=== PATIENT | female | born 1930 | race Caucasian/White ===

== ENCOUNTER → 2017-11-23 | Outpatient (CLI) | payer MEDICARE | END | disposition home or self-care (01) | LOC: RAH 10:02 | PROVIDERS: ATTEND Internal Medicine Endocrinology, Diabetes & Metabolism | DX: E04.2 Nontoxic multinodular goiter (principal) | CPT/HCPCS: 76536 ==

== ENCOUNTER 2017-11-27 07:44 | Emergency (ER) | payer MEDICARE ==
[2017-11-27] MEDS ORDERED: FENTANYL CITRATE PF 50 MCG/1 ML 2ML VIAL ONE (08:04)
[2017-11-27 08:29] LABS: BASOPHILS % (AUTO) 1.5 % (0.0-5.0); EOSINOPHILS % (AUTO) 0.1 % (0.0-8.0); HEMATOCRIT 43.8 % (36-48); LYMPHOCYTES % (AUTO) 14.1 % (21.0-51.0); MEAN CORPUSCULAR HEMOGLOBIN 32.2 pg (27.0-33.0); MEAN CORPUSCULAR HGB CONC 33.8 g/dL (32.0-36.0); MEAN CORPUSCULAR VOLUME 95.4 fL (79-99); MONOCYTES % (AUTO) 9.2 % (3.0-13.0); NEUTROPHILS % (AUTO) 75.1 % (40.0-77.0); NUCLEATED RED BLOOD CELLS 0.1 % (0.0-0.19); PLATELET COUNT (AUTO) 212 K/uL (130-400); RED BLOOD CELL COUNT(AUTO) 4.59 MIL/uL (4.00-5.50)
[2017-11-27 09:02] LABS: CREATININE 0.9 mg/dL (0.5-1.5); POTASSIUM 4.1 mmol/L (3.5-5.1)
[2017-11-27 09:08] LABS: ALBUMIN 4.2 g/dL (3.5-5.0); TOTAL PROTEIN, SERUM 8.3 g/dL (6.0-8.3)
[2017-11-27] MEDS ORDERED: LIDOCAINE 5% TOPICAL PATCH TP ONE (09:11)
[2017-11-27] MEDS ORDERED: DIAZEPAM 2 MG TAB ONE (09:12)
[2017-11-27 09:49] LABS: CRP QUANTITATIVE 16.5 mg/L (0.00-9.0)
[2017-11-27 09:52] LABS: ERYTHROCYTE SEDIMENTATION RATE 25 MM/HR (0-15)
== END 2017-11-27 12:35 | disposition home or self-care (01) ==
LOC: EDH 07:44
DX: M62.838 Other muscle spasm (principal); M54.2 Cervicalgia; R11.0 Nausea; I10 Essential (primary) hypertension; Z90.710 Acquired absence of both cervix and uterus; Z88.0 Allergy status to penicillin; Z88.1 Allergy status to other antibiotic agents; Z88.2 Allergy status to sulfonamides; Z88.5 Allergy status to narcotic agent; Z79.82 Long term (current) use of aspirin; Z79.899 Other long term (current) drug therapy
CPT/HCPCS: 36415; 70450; 72125; 80053; 85025; 85651; 86140; 96374; 96376; 99285; J3010

== ENCOUNTER 2018-08-13 10:32 | Emergency (ER) | payer MEDICARE ==
[2018-08-13] MEDS ORDERED: OXYMETAZOLINE HCL SPRAY 15 ML BOTTLE ONE (12:01)
[2018-08-13 12:20] LABS: BASOPHILS % (AUTO) 0.9 % (0.0-5.0); EOSINOPHILS % (AUTO) 1.1 % (0.0-8.0); HEMATOCRIT 44.3 % (36-48); LYMPHOCYTES % (AUTO) 19.8 % (21.0-51.0); MEAN CORPUSCULAR HGB CONC 33.4 g/dL (32.0-36.0); MEAN CORPUSCULAR VOLUME 95.8 fL (79-99); MONOCYTES % (AUTO) 8.2 % (3.0-13.0); PLATELET COUNT (AUTO) 172 K/uL (130-400); RED BLOOD CELL COUNT(AUTO) 4.62 MIL/uL (4.00-5.50); RED CELL DISTRIBUTION WIDTH 13.4 % (11.0-15.5); WHITE BLOOD COUNT (AUTO) 8.7 K/uL (4.8-10.8)
[2018-08-13 12:24] LABS: CREATININE 0.6 mg/dL (0.5-1.5); POTASSIUM 3.9 mmol/L (3.5-5.1)
[2018-08-13 12:31] LABS: INR 0.97 (0.85-1.15); PARTIAL THROMBOPLASTIN TIME 27.6 SEC (26.3-35.5); PROTHROMBIN TIME 10.2 SEC (9.6-11.6)
== END 2018-08-13 15:13 | disposition home or self-care (01) ==
LOC: EDH 10:32
DX: R04.0 Epistaxis (principal); I10 Essential (primary) hypertension; Z88.0 Allergy status to penicillin; Z88.1 Allergy status to other antibiotic agents; Z88.6 Allergy status to analgesic agent; Z88.2 Allergy status to sulfonamides; Z90.710 Acquired absence of both cervix and uterus
CPT/HCPCS: 36415; 80048; 85025; 85610; 85730

== ENCOUNTER → 2018-11-08 | Outpatient (CLI) | payer MEDICARE | END | disposition home or self-care (01) | LOC: RAH 10:30 | PROVIDERS: ATTEND Internal Medicine Endocrinology, Diabetes & Metabolism | DX: E04.2 Nontoxic multinodular goiter (principal) | CPT/HCPCS: 76536 ==

== ENCOUNTER → 2019-07-30 | Outpatient (CLI) | payer MEDICARE | END | disposition home or self-care (01) | LOC: RAH 08:18 | PROVIDERS: ATTEND Family Medicine | DX: Z12.31 Encounter for screening mammogram for malignant neoplasm of breast (principal); M94.0 Chondrocostal junction syndrome [Tietze] | CPT/HCPCS: 77067 ==

== ENCOUNTER → 2019-08-13 | Outpatient (CLI) | payer MEDICARE | END | disposition home or self-care (01) | LOC: RAH 10:42 | PROVIDERS: ATTEND Internal Medicine Endocrinology, Diabetes & Metabolism | DX: E04.2 Nontoxic multinodular goiter (principal) | CPT/HCPCS: 76536 ==

== ENCOUNTER 2020-02-12 14:10 | Inpatient (IN) | payer MEDICARE ==
[~2020-02-12] VITALS: Ht 154.9 cm; Wt 65.7 kg
[2020-02-12] MEDS ORDERED: SODIUM CHLORIDE 0.9% 500ML 500 ML IV ONE (14:37)
[2020-02-12] MEDS ORDERED: ONDANSETRON HCL 4 MG/2 ML VIAL ONE (14:37)
[2020-02-12 15:00] LABS: BASOPHILS % (AUTO) 0.3 % (0.0-5.0); HEMATOCRIT 41.9 % (36-48); LYMPHOCYTES % (AUTO) 21.2 % (21.0-51.0); MEAN CORPUSCULAR HEMOGLOBIN 30.5 pg (27.0-33.0); MEAN CORPUSCULAR HGB CONC 33.7 g/dL (32.0-36.0); MEAN CORPUSCULAR VOLUME 90.7 fL (79-99); MONOCYTES % (AUTO) 11.8 % (3.0-13.0); NEUTROPHILS % (AUTO) 65.1 % (40.0-77.0); PLATELET COUNT (AUTO) 157 K/uL (130-400); RED BLOOD CELL COUNT(AUTO) 4.62 MIL/uL (4.00-5.50); RED CELL DISTRIBUTION WIDTH 12.8 % (11.0-15.5); WHITE BLOOD COUNT (AUTO) 3.8 K/uL (4.8-10.8)
[2020-02-12 15:01] LABS: CREATININE 0.8 mg/dL (0.5-1.5); POTASSIUM 3.4 mmol/L (3.5-5.1)
[2020-02-12 15:06] LABS: ALBUMIN 3.3 g/dL (3.5-5.0); BILIRUBIN,TOTAL 0.8 mg/dL (0.2-1.0); TOTAL PROTEIN, SERUM 7.2 g/dL (6.0-8.3)
[2020-02-12 15:43] LABS: APPEARANCE,URINE SL CLOUDY (CLEAR); BILIRUBIN,URINE NEGATIVE (NEGATIVE); COLOR,URINE YELLOW (YELLOW); GLUCOSE, URINE (UA) NEGATIVE (NEGATIVE); KETONES,URINE 5 mg/dL (NEGATIVE); LEUKOCYTE ESTERASE ,URINE SMALL (NEGATIVE); NITRATE,URINE NEGATIVE (NEGATIVE); OCCULT BLOOD,URINE TRACE-INTACT (NEGATIVE); PROTEIN,URINE 100 mg/dL (NEGATIVE); UROBILINOGEN,URINE 0.2 mg/dL (0.2-1.0)
[2020-02-12 15:59] LABS: BACTERIA,URINE Few /HPF (None Seen); SQUAMOUS EPITHELIAL CELL,UR Few /HPF (0-2)
[2020-02-12 16:00] LABS: MUCUS,URINE Few LPF (None Seen)
[2020-02-12] MEDS ORDERED: METHYLPREDNISOLONE SOD SUCC 40MG/ML 1ML ONE (17:42)
[2020-02-12] MEDS ORDERED: LEVOFLOXACIN 500 MG/D5W 100 ML 100 ML ONE (17:43)
[2020-02-13] MEDS ORDERED: METHYLPREDNISOLONE SOD SUCC 40MG/ML 1ML ONE (00:29)
[2020-02-13 05:00] LABS: BASOPHILS % (AUTO) 0.5 % (0.0-5.0); HEMATOCRIT 39.3 % (36-48); LYMPHOCYTES % (AUTO) 27.3 % (21.0-51.0); MEAN CORPUSCULAR HEMOGLOBIN 30.7 pg (27.0-33.0); MEAN CORPUSCULAR HGB CONC 33.8 g/dL (32.0-36.0); MEAN CORPUSCULAR VOLUME 90.8 fL (79-99); MONOCYTES % (AUTO) 4.5 % (3.0-13.0); NEUTROPHILS % (AUTO) 65.7 % (40.0-77.0); PLATELET COUNT (AUTO) 141 K/uL (130-400); RED BLOOD CELL COUNT(AUTO) 4.33 MIL/uL (4.00-5.50); RED CELL DISTRIBUTION WIDTH 12.7 % (11.0-15.5)
[2020-02-13 05:01] LABS: CREATININE 0.6 mg/dL (0.5-1.5); POTASSIUM 4.1 mmol/L (3.5-5.1)
[2020-02-13] MEDS ORDERED: METHYLPREDNISOLONE SOD SUCC 40MG/ML 1ML IVP SCH (07:15)
[2020-02-13] MEDS ORDERED: DEXTROSE 50%-WATER 50 ML DISP.SYRIN IV PRN (07:15)
[2020-02-13] MEDS ORDERED: SODIUM CHLORIDE 0.9% 1000ML 1,000 ML IV SCH (07:15)
[2020-02-13] MEDS ORDERED: GLUCAGON 1MG KIT 1 MG ML IM PRN (07:15)
[2020-02-13] MEDS ORDERED: AZITHROMYCIN 500MG+NS 250ML 250 ML IV SCH ×2 (09:00→15:00)
[2020-02-13 10:34] LABS: CREATINE KINASE, TOTAL 92 U/L (21-232); LACTATE DEHYDROGENASE 460 U/L (81-234)
[2020-02-13 10:43] LABS: FIBRINOGEN 366 mg/dL (180-350)
[2020-02-13 11:18] LABS: D-DIMER 3205 ng/mL (0-500)
[2020-02-13] MEDS ORDERED: HYDRALAZINE HCL 20 MG/ML VIAL IV PRN (13:30)
[2020-02-13] MEDS ORDERED: ACETAMINOPHEN 325 MG TAB PO PRN ×2 (13:30)
[2020-02-13] MEDS ORDERED: CEFTRIAXONE SODIUM 1 GM IVP SCH (13:30)
[2020-02-13] MEDS ORDERED: METOPROLOL TARTRATE 1 MG/ML 5ML VIAL IV PRN (13:30)
[2020-02-13] MEDS ORDERED: CEFTRIAXONE SODIUM 1 GM ONE (13:37)
[2020-02-13] MEDS ORDERED: AZITHROMYCIN 500MG+NS 250ML 250 ML IV ONE (15:40)
[2020-02-13] MEDS ORDERED: ERGOCALCIFEROL (VITAMIN D2) 50,000 UNIT CAPSULE PO ONE (16:00)
[2020-02-13] MEDS ORDERED: ENOXAPARIN SODIUM 80 MG/0.8 ML SQ ONE (20:36)
[2020-02-13] MEDS ORDERED: ACETAMINOPHEN 325 MG TAB ONE (23:24)
[2020-02-14 05:57] LABS: BASOPHILS % (AUTO) 0.1 % (0.0-5.0); HEMATOCRIT 41.1 % (36-48); LYMPHOCYTES % (AUTO) 10.7 % (21.0-51.0); MEAN CORPUSCULAR HGB CONC 33.8 g/dL (32.0-36.0); MEAN CORPUSCULAR VOLUME 91.5 fL (79-99); NEUTROPHILS % (AUTO) 82.7 % (40.0-77.0); PLATELET COUNT (AUTO) 168 K/uL (130-400); RED BLOOD CELL COUNT(AUTO) 4.49 MIL/uL (4.00-5.50); RED CELL DISTRIBUTION WIDTH 12.7 % (11.0-15.5); WHITE BLOOD COUNT (AUTO) 7.3 K/uL (4.8-10.8)
[2020-02-14 06:38] LABS: CREATININE 0.7 mg/dL (0.5-1.5); MAGNESIUM 2.2 mg/dL (1.80-2.40)
[2020-02-14] MEDS ORDERED: ACETAMINOPHEN 325 MG TAB ONE (07:26)
[2020-02-14] MEDS ORDERED: ASCORBIC ACID 500 MG TAB ONE (08:08)
[2020-02-14] MEDS ORDERED: DEXAMETHASONE SOD PHOSPHATE 4 MG/ML 1ML VIAL ONE (08:08)
[2020-02-14] MEDS ORDERED: ENOXAPARIN SODIUM 80 MG/0.8 ML SQ ONE ×2 (08:08→20:35)
[2020-02-14] MEDS ORDERED: CEFTRIAXONE SODIUM 1 GM ONE (08:08)
[2020-02-14] MEDS ORDERED: FAMOTIDINE/PF 20 MG/2 ML VIAL IV ONE (08:09)
[2020-02-14] MEDS ORDERED: ZINC SULFATE 220 CAPSULE ONE (08:39)
[2020-02-15] MEDS ORDERED: ACETAMINOPHEN EXTRA STRENGTH 500 MG TABLET ONE (04:38)
[2020-02-15] MEDS ORDERED: ASCORBIC ACID 500 MG TAB ONE (08:21)
[2020-02-15] MEDS ORDERED: ENOXAPARIN SODIUM 80 MG/0.8 ML SQ ONE ×2 (08:21→20:44)
[2020-02-15] MEDS ORDERED: ZINC SULFATE 220 CAPSULE ONE (08:22)
[2020-02-15] MEDS ORDERED: CEFTRIAXONE SODIUM 1 GM ONE (08:22)
[2020-02-15] MEDS ORDERED: AZITHROMYCIN 500MG+NS 250ML 250 ML IV ONE (08:22)
[2020-02-15] MEDS ORDERED: FAMOTIDINE/PF 20 MG/2 ML VIAL IV ONE (08:23)
[2020-02-15] MEDS: ZINC SULFATE 220 CAPSULE PO SCH (09:00)
[2020-02-15] MEDS: DEXAMETHASONE SOD PHOSPHATE 4 MG/ML 1ML VIAL IVP SCH (09:00)
[2020-02-15] MEDS: ASCORBIC ACID 500 MG TAB PO SCH (09:00)
[2020-02-15] MEDS: FAMOTIDINE 20MG TAB 20 MG TAB PO SCH (09:00)
[2020-02-15] MEDS ORDERED: ASPI-556 PO (10:27)
[2020-02-15] MEDS ORDERED: VIT1CAPS47 PO (10:27)
[2020-02-15] MEDS ORDERED: AMLO5TAB9 PO (10:27)
[2020-02-15] MEDS ORDERED: MULT-1250 PO (10:27)
[2020-02-15] MEDS ORDERED: LOSA50TA64 PO (10:27)
[2020-02-15] MEDS ORDERED: ROSU10TA28 PO (10:27)
[2020-02-15 20:00] VITALS: BP 152/63
[2020-02-15] MEDS: INSULIN R PO SS2 SQ SCH (21:00)
[2020-02-15] MEDS: ENOXAPARIN SODIUM 80 MG/0.8 ML SQ SCH (21:00)
[2020-02-16] VITALS: BP 144/63
[2020-02-16] MEDS ORDERED: ACETAMINOPHEN 325 MG TAB ONE (01:15)
[2020-02-16] MEDS ORDERED: IBUPROFEN 400 MG TABLET PO PRN (02:00)
[2020-02-16] MEDS ORDERED: DOXYCYCLINE HYCLATE 100 MG TABLET PO ONE (02:23)
[2020-02-16 04:37] VITALS: BP 131/57
[2020-02-16] MEDS: INSULIN R PO SS2 SQ SCH ×4 (05:53→20:39)
[2020-02-16 07:35] VITALS: BP 122/60
[2020-02-16] MEDS: DEXAMETHASONE SOD PHOSPHATE 4 MG/ML 1ML VIAL IVP SCH (07:39)
[2020-02-16] MEDS: DOXYCYCLINE HYCLATE 100 MG TABLET PO SCH ×2 (07:39→20:49)
[2020-02-16] MEDS: ASCORBIC ACID 500 MG TAB PO SCH (07:39)
[2020-02-16] MEDS: ZINC SULFATE 220 CAPSULE PO SCH (07:39)
[2020-02-16] MEDS: FAMOTIDINE 20MG TAB 20 MG TAB PO SCH (07:39)
[2020-02-16] MEDS: ENOXAPARIN SODIUM 80 MG/0.8 ML SQ SCH ×2 (07:40→20:49)
[2020-02-16 10:27] LABS: BASOPHILS % (AUTO) 0.1 % (0.0-5.0); HEMATOCRIT 36.8 % (36-48); LYMPHOCYTES % (AUTO) 9.1 % (21.0-51.0); MEAN CORPUSCULAR HEMOGLOBIN 30.8 pg (27.0-33.0); MEAN CORPUSCULAR HGB CONC 33.7 g/dL (32.0-36.0); MEAN CORPUSCULAR VOLUME 91.5 fL (79-99); MONOCYTES % (AUTO) 3.9 % (3.0-13.0); NEUTROPHILS % (AUTO) 86.2 % (40.0-77.0); PLATELET COUNT (AUTO) 160 K/uL (130-400); RED BLOOD CELL COUNT(AUTO) 4.02 MIL/uL (4.00-5.50); RED CELL DISTRIBUTION WIDTH 13.2 % (11.0-15.5); WHITE BLOOD COUNT (AUTO) 9.1 K/uL (4.8-10.8)
[2020-02-16 10:45] LABS: ALBUMIN 2.2 g/dL (3.5-5.0); BILIRUBIN,TOTAL 0.5 mg/dL (0.2-1.0); CREATININE 0.6 mg/dL (0.5-1.5); TOTAL PROTEIN, SERUM 5.8 g/dL (6.0-8.3)
[2020-02-16 11:01] VITALS: BP 128/66
[2020-02-16 11:57] LABS: BAND NEUTROPHILS % (MANUAL) 7 % (0-2); LYMPHOCYTES % (MANUAL) 7 % (22-44); MAN.DIFF COMMENT-IMPRESSION MANUAL DIFFERENTIAL; MONOCYTES % (MANUAL) 1 % (2-9); PLATELET MORPHOLOGY COMMENT ADEQUATE; SEGMENTED NEUTROPHILS % 85 % (40-70)
[2020-02-16 16:00] VITALS: BP 140/64
[2020-02-16 20:00] VITALS: BP 129/73
[2020-02-16] MEDS ORDERED: ONDANSETRON HCL 4 MG/2 ML VIAL IVP PRN (22:45)
[2020-02-16] MEDS ORDERED: ONDANSETRON HCL 4 MG/2 ML VIAL ONE (22:47)
[2020-02-17] VITALS: BP 141/68
[2020-02-17 04:00] VITALS: BP 143/68
[2020-02-17] MEDS: INSULIN R PO SS2 SQ SCH ×3 (06:18→16:18)
[2020-02-17] MEDS: METOCLOPRAMIDE 10 MG/2 ML VIAL IVP SCH ×3 (06:28→16:19)
[2020-02-17] MEDS: DOXYCYCLINE HYCLATE 100 MG TABLET PO SCH (07:44)
[2020-02-17] MEDS: DEXAMETHASONE SOD PHOSPHATE 4 MG/ML 1ML VIAL IVP SCH (07:44)
[2020-02-17] MEDS: ASCORBIC ACID 500 MG TAB PO SCH (07:44)
[2020-02-17] MEDS: ZINC SULFATE 220 CAPSULE PO SCH (07:44)
[2020-02-17] MEDS: ENOXAPARIN SODIUM 80 MG/0.8 ML SQ SCH (07:45)
[2020-02-17] MEDS: FAMOTIDINE 20MG TAB 20 MG TAB PO SCH (07:45)
[2020-02-17 10:33] VITALS: BP 149/78
[2020-02-17] MEDS ORDERED: DOXY100T2 PO (13:46)
[2020-02-17] MEDS ORDERED: ZINC220C6 PO (13:46)
[2020-02-17] MEDS ORDERED: FAMO20TA8 PO (13:46)
[2020-02-17] MEDS ORDERED: ASCO500T20 PO (13:46)
[2020-02-17] MEDS ORDERED: FURO20TA6 PO (13:46)
[2020-02-17] MEDS ORDERED: DEXA6TAB PO (13:46)
[2020-02-17 16:10] VITALS: BP 170/80
== END 2020-02-17 18:40 | DRG 177 ==
LOC: EDH 14:10 → EDHIP 18:48 → OBSVTOIN 18:48 → 4AH 02-16 04:30
PROVIDERS: ADMIT Internal Medicine; ATTEND Internal Medicine
DX: U07.1 COVID-19 (principal); J18.9 Pneumonia, unspecified organism; N39.0 Urinary tract infection, site not specified; I10 Essential (primary) hypertension; E78.5 Hyperlipidemia, unspecified; E86.0 Dehydration; R09.02 Hypoxemia; Z96.653 Presence of artificial knee joint, bilateral; Z90.710 Acquired absence of both cervix and uterus; Z88.5 Allergy status to narcotic agent; Z88.0 Allergy status to penicillin; Z88.2 Allergy status to sulfonamides
CPT/HCPCS: 36415; 71045; 80048; 80053; 81001; 82550; 82728; 82948; 83605; 83615; 83690; 83735; 84145; 84484; 85025; 85378; 85384; 86140; 87040; 87077; 87088; 87186; 93005; 97039; G0378; J0456; J0696; J1100; J1650; J1956; J2405; J2765; J2920; J3490; J7040; U0003